=== PATIENT | female | born 1985 | race Caucasian/White ===

== ENCOUNTER 2016-07-16 06:41 | Emergency (ER) | payer OTHER ==
[2016-07-16] MEDS ORDERED: KETOROLAC TROMETHAMINE 15 MG/ML VIAL ONE (06:55)
[2016-07-16] MEDS ORDERED: MORPHINE SULFATE 2 MG/ML SYRINGE ONE (06:58)
[2016-07-16] MEDS ORDERED: MORPHINE SULFATE 4 MG/ML SYRINGE ONE (06:58)
[2016-07-16 06:59] LABS: SPECIFIC GRAVITY 1.025 (1.001-1.030); URINE BILIRUBIN NEGATIVE (NEGATIVE); URINE BLOOD 3+ (NEGATIVE); URINE GLUCOSE (UA) NEGATIVE (NEGATIVE); URINE LEUKOCYTE ESTERASE NEGATIVE (NEGATIVE); URINE NITRITE NEGATIVE (NEGATIVE); URINE PROTEIN NEGATIVE (NEGATIVE); URINE UROBILINOGEN NORMAL (0-1 mg/dl)
[2016-07-16 07:01] LABS: HCG,QUALITATIVE URINE NEGATIVE; URINE APPEARANCE HAZY; URINE COLOR LIGHT YELLOW
[2016-07-16 07:22] LABS: ABSOLUTE NEUTROPHIL COUNT 5.3 K/mm3 (1.8-7.7); BASO % 0.4 % (0.2-1.0); EOS # 0.1 (0.0-0.5); HEMATOCRIT 42.3 % (37.0-47.0); HEMOGLOBIN 13.8 gm/l (12.0-16.0); IMM NEUT% 0.3 % (0-1); LYMPH # 1.4 (1.0-4.8); LYMPH % 19.3 % (15-45); MEAN CELL VOLUME 85.6 fl (81.0-99.0); MEAN CORPUSCULAR HEMOGLOBIN 27.9 pg (27.0-31.0); MEAN CORPUSCULAR HGB CONC 32.6 g/dl (33.0-37.0); MEAN PLATELET VOLUME 11.6 fl (7.4-10.4); MONO # 0.4 (0.0-0.8); MONO % 5.3 % (4-12); NEUT % 73.7 % (43-75); PLATELET COUNT 206 K/mm3 (130-400); RED CELL DISTRIBUTION WIDTH 13.6 % (11.5-14.5)
[2016-07-16 07:27] LABS: ALB/GLOB RATIO 1.2 (>1.0); ALBUMIN 4.6 gm/dL (3.5-5.7); CALCIUM 11.1 mg/dL (8.6-10.3)
[2016-07-16 07:29] LABS: URINE BACTERIA FEW; URINE WBC NEG /hpf
--- NOTE | 2016-07-16 08:35 | US ---
EXAMINATION : RENAL LTD/AORTA/BLADDER HISTORY: Left flank pain for one day. History of kidney stones in the past. COMPARISONS: None FINDINGS: Sonographic interrogation of the left kidney exhibits no obstructing calculus or hydronephrosis. The left kidney measures 11.4 x 5.1 x 5.9 cm. Cortical thickness is 9 mm. Resistive index is normal at 0.68. No shadowing calculi are identified. The bladder is decompressed. IMPRESSION: Currently no evidence of left hydronephrosis or hydroureter.
[2016-07-16] MEDS ORDERED: HYDROCODONE/ACETAMINOPHEN 5/325MG TABLET ONE (09:31)
== END 2016-07-16 10:10 | disposition home or self-care (01) ==
LOC: ED 06:41
DX: R10.9 Unspecified abdominal pain (principal)
CPT/HCPCS: 81025; 85025; 80053; 81001; 76775; 96375; 99284; 96374; 99283; J2270 ×2; J1885; A9270